=== PATIENT | female | born 1980 | race Caucasian/White ===

== ENCOUNTER 2025-05-04 09:16 | Day surgery (SDC) | payer OTHER ==
[2025-05-02 17:20] VITALS: BMI 22.2
[2025-05-04 11:01] VITALS: TEMP 97.4
[2025-05-04 11:24] VITALS: BP 109/61; PULSE 75; RESP 18
== END 2025-05-04 11:26 | disposition home or self-care (01) ==
LOC: FASU-ENDO 09:16
PROVIDERS: ATTEND Internal Medicine Gastroenterology
PROC: 0DBN8ZX Excision of Sigmoid Colon, Via Natural or Artificial Opening Endoscopic, Diagnostic (ICD-10-PCS; principal; 2025-05-04 10:27)
DX: K64.1 Second degree hemorrhoids (principal); K64.8 Other hemorrhoids
CPT/HCPCS: 81025; 88305-TC